=== PATIENT | male | born 1985 | race Caucasian/White ===

== ENCOUNTER → 2020-10-10 | Outpatient (CLI) | payer OTHER | LOC: HEART 5 14:41 | DX: J45.909 Unspecified asthma, uncomplicated (principal) | CPT/HCPCS: 94010 ==

== ENCOUNTER → 2021-08-20 | Outpatient (CLI) | payer OTHER | LOC: HEART 5 11:27 | DX: J45.30 Mild persistent asthma, uncomplicated (principal) | CPT/HCPCS: 94010; 95012 ==